=== PATIENT | female | born 1930 | race Two or more races ===

== ENCOUNTER 2017-06-22 10:14 | Outpatient (CLI) | payer OTHER ==
[~2017-06-22 10:14] MED LIST: AVAPRO150 MG PO; CARAFATE1 G PO; COZAAR25 MG; MULTI VITAMINS W1 MG PO; PRANDIN; PROTONIX40 MG PO
== END 2017-06-22 10:28 | disposition home or self-care (01) ==
LOC: RAD 10:14
DX: M12.88 Other specific arthropathies, not elsewhere classified, other specified site (principal); M19.90 Unspecified osteoarthritis, unspecified site

== ENCOUNTER 2020-01-05 14:30 | Inpatient (IN) | payer OTHER ==
[~2020-01-05] VITALS: Ht 86.4 cm; Wt 68.0 kg
[2020-01-05] MEDS ORDERED: PAXIL20 MG (14:56)
[2020-01-05] MEDS ORDERED: NAMENDA10 MG (14:57)
[2020-01-05] MEDS ORDERED: ZANTAC25 MG/1 ML (14:57)
[2020-01-05] MEDS ORDERED: ARICEPT10 MG (14:57)
[2020-01-05] MEDS ORDERED: FENOFIBRIC ACI105 MG (14:58)
[2020-01-05] MEDS ORDERED: XARELTO10 MG (14:58)
[2020-01-05] MEDS ORDERED: COZAAR50 MG (14:58)
[2020-01-14] MEDS ORDERED: CEFTRIAXONE1 GM IV (14:02)
== END 2020-01-14 20:02 | disposition home or self-care (01) | DRG 580 ==
LOC: ER 14:30 → SURG 19:33 → SEC-K 19:33 → SURG 21:26 → SURH 01-08 17:53
PROVIDERS: Surgery; ADMIT Internal Medicine; ATTEND Internal Medicine
PROC: 0T9B70Z Drainage of Bladder with Drainage Device, Via Natural or Artificial Opening (ICD-10-PCS; 2020-01-05)
PROC: 0X6R0Z3 Detachment at Left Middle Finger, Low, Open Approach (ICD-10-PCS; 2020-01-07)
PROC: 8E0ZXY6 Isolation (ICD-10-PCS; 2020-01-07)
PROC: 0JBK0ZZ Excision of Left Hand Subcutaneous Tissue and Fascia, Open Approach (ICD-10-PCS; principal; 2020-01-07 08:30)
DX: L98.496 Non-pressure chronic ulcer of skin of other sites with bone involvement without evidence of necrosis (principal); M86.142 Other acute osteomyelitis, left hand; B95.61 Methicillin susceptible Staphylococcus aureus infection as the cause of diseases classified elsewhere; B95.2 Enterococcus as the cause of diseases classified elsewhere; B96.6 Bacteroides fragilis [B. fragilis] as the cause of diseases classified elsewhere; E11.622 Type 2 diabetes mellitus with other skin ulcer; I73.89 Other specified peripheral vascular diseases; I10 Essential (primary) hypertension; G30.0 Alzheimer's disease with early onset; F02.80 Dementia in other diseases classified elsewhere, unspecified severity, without behavioral disturbance, psychotic disturbance, mood disturbance, and anxiety; Z74.01 Bed confinement status; Z79.4 Long term (current) use of insulin; Z79.01 Long term (current) use of anticoagulants; Z03.818 Encounter for observation for suspected exposure to other biological agents ruled out; B35.2 Tinea manuum